=== PATIENT | male | born 1945 | race Caucasian/White ===

== ENCOUNTER → 2018-02-15 | Outpatient (CLI) | payer MEDICARE, OTHER ==
[~2018-02-15] MED LIST: ROSU10TA PO
== END | disposition home or self-care (01) ==
LOC: PLD 13:44 → LAB SHORT 13:44
DX: L82.1 Other seborrheic keratosis (principal)
CPT/HCPCS: 88305

== ENCOUNTER 2023-05-20 10:30 | Day surgery (SDC) | payer MEDICARE, OTHER ==
[~2023-05-20] VITALS: Ht 177.8 cm; Wt 90.4 kg
[~2023-05-20 10:30] MED LIST changes: +Dilaudid 2 mg Ta2 MG; +Methocarbamol500 MG PO; +Mirapex0.125 MG PO; +NARCAN4 M1; +OXYC10TA19 PO; +Valium5 MG PO
[2023-05-20] MEDS ORDERED: IBUP400 (10:49)
[2023-05-20] MEDS ORDERED: Neurontin 100100 MG (10:49)
[2023-05-20 12:30] VITALS: BP 97/73
== END 2023-05-20 12:20 | disposition home or self-care (01) ==
LOC: ORSCSDS 10:30
PROVIDERS: Internal Medicine Gastroenterology
PROC: 0DBK8ZX Excision of Ascending Colon, Via Natural or Artificial Opening Endoscopic, Diagnostic (ICD-10-PCS; principal; 2023-05-20 12:00)
PROC: 0DBM8ZX Excision of Descending Colon, Via Natural or Artificial Opening Endoscopic, Diagnostic (ICD-10-PCS; principal; 2023-05-20 12:00)
DX: Z12.11 Encounter for screening for malignant neoplasm of colon (principal); Z86.010 Personal history of colon polyps; Z80.0 Family history of malignant neoplasm of digestive organs; D12.2 Benign neoplasm of ascending colon; D12.4 Benign neoplasm of descending colon; K57.30 Diverticulosis of large intestine without perforation or abscess without bleeding; K64.8 Other hemorrhoids; E78.5 Hyperlipidemia, unspecified; Z87.891 Personal history of nicotine dependence; Z79.899 Other long term (current) drug therapy
CPT/HCPCS: 88305; J2001; J2704; J7120